=== PATIENT | female | born 1965 | race Caucasian/White ===

== ENCOUNTER 2022-09-30 17:25 | Emergency (ER) | payer OTHER ==
--- NOTE | 2022-09-30 17:28 | ERPHSYRPT ---
- History of Present Illness Time Seen by Provider: 09/30/22 17:28 Source: patient, family Exam Limitations: no limitations Physician History: This is a 57-year-old white female patient who has had a left hip surgery in the distant past and has had problems with her left lower extremity intermittently. But in the last month, she has had more significant swelling in her left lower extremity. The last few days its even worse. Patient is being worked up as an outpatient. She has not had a fever. She has not had a cough. She has no chest pain and she denies shortness of breath. Patient has a history of hypertension, gastroesophageal reflux disease and hyperlipidemia. Occurred: other (Intermittently over the last month) Quality: constant, aching Severity of Pain-Max: mild Severity of Pain-Current: mild Lower Extremities Pain: leg: left, thigh: left, foot: left, ankle: left Modifying Factors: Improves With: nothing Associated Symptoms: none Allergies/Adverse Reactions: gabapentin Allergy (Verified 09/30/22 17:55) latex Allergy (Verified 09/30/22 17:55) Home Medications: Amlodipine Besylate/Benazepril [Amlodipine-Benazepril 10-40 mg] 1 each PO DAILY 09/30/22 [History] Aspirin EC 81 mg [Ecotrin 81 mg] 81 mg PO DAILY 09/30/22 [History] Omeprazole Magnesium [Prilosec Otc] 20 mg PO DAILY 09/30/22 [History] Pravastatin Sodium 80 mg PO HS 09/30/22 [History] Topiramate 100 mg [Topamax 100 MG] 100 mg PO HS 09/30/22 [History] Travel Risk - International Travel Have you traveled outside of the country in past 3 weeks: No - Coronavirus Screening Are you exhibiting any of the following symptoms?: No Close contact with a COVID-19 positive Pt in past 14-21 Days: No - Review of Systems Constitutional: No Symptoms Eyes: No Symptoms Ears, Nose, & Throat: No Symptoms Respiratory: No Symptoms Cardiac: No Symptoms Abdominal/Gastrointestinal: No Symptoms Genitourinary Symptoms: No Symptoms Musculoskeletal: No Symptoms Skin: Other (Swelling left lower extremity), No Cellulitis Neurological: No Symptoms Psychological: No Symptoms Endocrine: No Symptoms Hematologic/Lymphatic: No Symptoms Immunological/Allergic: No Symptoms All Other Systems: Reviewed and Negative - Past Medical History Pertinent Past Medical History: Yes - Past Surgical History Past Surgical History: Yes - Nursing Vital Signs Nursing Vital Signs: Initial Vital Signs Temperature 96.4 F 09/30/22 17:59 Pulse Rate 75 09/30/22 17:59 Respiratory Rate 18 09/30/22 17:59 Blood Pressure 168/79 09/30/22 17:59 O2 Sat by Pulse Oximetry 99 09/30/22 17:59 Pain Scale Pain Intensity 3 - Physical Exam General Appearance: no apparent distress, alert, anxiety Eyes, Ears, Nose, Throat Exam: normal ENT inspection, moist mucous membranes Neck Exam: normal inspection, non-tender, supple, full range of motion Cardiovascular/Respiratory Exam: chest non-tender, no respiratory distress Gastrointestinal/Abdominal Exam: non-tender Back Exam: normal inspection, normal range of motion, No CVA tenderness, No vertebral tenderness Hips Exam: bilateral: non-tender, normal inspection, normal range of motion Legs Exam: right leg: non-tender, normal inspection, normal range of motion, no evidence of injury, left leg: soft tissue tenderness ( left lower extremity), swelling ( left lower extremity) Knees Exam: right knee: non-tender, normal inspection, normal range of motion, no evidence of injury, left knee: soft tissue tenderness, swelling Ankle Exam: right ankle: non-tender, normal inspection, normal range of motion, no evidence of injury, left ankle: soft tissue tenderness, swelling Foot Exam: right foot: non-tender, normal inspection, normal range of motion, no evidence of injury, left foot: soft tissue tenderness, swelling Neuro/Tendon Exam: normal sensation, normal motor functions, normal tendon functions, responds to pain, no evidence tendon injury Mental Status Exam: alert, oriented x 3, cooperative Skin Exam: normal color, warm, dry SpO2 Interpretation: normal O2 Delivery: Room Air - Course Nursing assessment & vital signs reviewed: Yes Ordered Tests: Active Orders 24 hr Category Date Time Status Ultrasound Unilateral Extremities [VENOUS UNILAT/ Exams 09/30/22 18:15 Taken LIMITED EXTREMIT] [US] Stat Medication Summary Discontinued Medications Generic Name Dose Route Start Last Admin Trade Name Freq PRN Reason Stop Dose Admin Acetaminophen 650 mg 09/30/22 18:57 09/30/22 19:07 Acetaminophen 325 Mg Tablet PO 09/30/22 18:58 650 mg STAT ONE Administration Acetaminophen Confirm 09/30/22 19:06 Acetaminophen 325 Mg Tablet Administered 09/30/22 19:07 Dose 650 mg .ROUTE .STK-MED ONE - Progress Progress: improved, re-examined Progress Note: 09/30/22 19:42 Venous ultrasound left lower extremity shows no evidence of DVT. This patient's medical issues 1 of low complexity. Level of complexity in the work-up performed is based on review of the patient's past medical history, medication list review, review of the patient's drug allergy list, history of present illness and physical findings on examination. The work-up in this patient includes venous ultrasound of left lower extremity. There is no evidence of deep venous thrombosis. Patient is to continue the work-up as an outpatient as it is scheduled for her. Counseled pt/family regarding: diagnosis, need for follow-up, rad results Medical Desision Making - Diagnostic Testing Diagnostic test were ordered, analyzed, and reviewed by me: Yes Radiological Interpretation: Reviewed by me, Teleradiologist Report - Risk of complications Low Risk: Low risk of morbidity from additional dx testing or treatment - Departure Departure Disposition: Home Clinical Impression: Left leg swelling Condition: Stable Critical Care Time: No Referrals: ANDRE RODRIGUEZ NP [Primary Care Provider] - Follow up/PCP as directed Additional Instructions: Elevate the leg above the level of your heart when you are not ambulating. Contact your primary care provider on 10/02/2022 for further evaluation and management.
[2022-09-30 18:11] VITALS: PULSE 75
[2022-09-30 18:15] VITALS: O2SAT 97
[2022-09-30] MEDS ORDERED: TYLENOL 325 MG PO ONE (18:57)
[2022-09-30] MEDS ORDERED: TYLENOL 325 MG ONE (19:06)
[2022-09-30 19:13] VITALS: BP 130/75
--- NOTE | 2022-09-30 22:26 | XRAY ---
Indication: Pain and swelling. Two-dimensional sonogram and color Doppler imaging of the major venous vessels of the left leg performed. Comparison: None No thrombus seen in the examined deep venous vessels of the left leg including greater saphenous vein. Veins demonstrate normal compressibility. Venous waveforms are normal with and without augmentation. At the level of ankle, there is mild subcutaneous venous varicosities up to 3-4 mm diameter. Impression: Left leg negative for DVT. Incidental ankle subcutaneous venous varicosities.
== END 2022-09-30 20:02 | disposition home or self-care (01) ==
LOC: ED 17:25
DX: M79.89 Other specified soft tissue disorders (principal); I10 Essential (primary) hypertension; E78.5 Hyperlipidemia, unspecified; Z79.899 Other long term (current) drug therapy
CPT/HCPCS: 93971; 99282; A9270-GY

== ENCOUNTER 2022-11-27 21:51 | Emergency (ER) | payer OTHER ==
[2022-11-27] MEDS ORDERED: DELTASONE 10 MG PO STA (22:23)
[2022-11-27 22:27] VITALS: BP 110/59; PULSE 84; RESP 16; TEMP 97.1; O2SAT 99
[2022-11-27] MEDS ORDERED: DELTASONE 20 MG ONE (22:35)
[2022-11-27] MEDS ORDERED: DELTASONE 20 MG PO ONE (22:37)
--- NOTE | 2022-11-27 22:37 | ERPHSYRPT ---
- History of Present Illness Time Seen by Provider: 11/27/22 22:34 Source: patient Exam Limitations: no limitations Patient Subjective Stated Complaint: pt states she has had a cough for the last 2 days. states she has been coughing up thick white sputum. Triage Nursing Assessment: pt alert and oriented, answers questions approp. pt ambulates into room with steady gait noted. respirations nonlabored with lung sounds cta. skin warm and dry. Physician History: Patient is a 57-year-old female presents to our ED for evaluation of a cough. Cough has been present for 2 days. Patient states cough prevented her from slee ping last night. Cough productive of thick clear sputum. No fever. No shortness of breath. No chest pain. No nausea vomiting or diaphoresis. Symptoms are mild to moderate in intensity. No specific worsening improving factors. Patient is otherwise healthy. She voices no other complaints or concerns at this time. Portions of this note were created with voice recognition technology. There may be grammatical, spelling, punctuation or sound alike errors Timing/Duration: day(s) (2 days) Severity: moderate Modifying Factors: Improves With: nothing Associated Symptoms: denies symptoms Allergies/Adverse Reactions: gabapentin Allergy (Verified 11/27/22 22:27) latex Allergy (Verified 11/27/22 22:27) Home Medications: Aspirin EC 81 mg [Ecotrin 81 mg] 81 mg PO DAILY 09/30/22 [History] Omeprazole Magnesium [Prilosec Otc] 20 mg PO DAILY 09/30/22 [History] Pravastatin Sodium 80 mg PO HS 09/30/22 [History] Amlodipine Besylate/Benazepril [Amlodipine-Benazepril 10-20 mg] 1 each PO DAILY 11/27/22 [History] Famotidine 20 mg [Pepcid 20 MG] 40 mg PO DAILY 11/27/22 [History] Topiramate [Trokendi Xr] 100 mg PO DAILY 11/27/22 [History] Zinc Gluconate [Zinc] 50 mg PO DAILY 11/27/22 [History] Hx Tetanus, Diphtheria Vaccination/Date Given: Yes Hx Influenza Vaccination/Date Given: No Hx Pneumococcal Vaccination/Date Given: Yes Travel Risk - International Travel Have you traveled outside of the country in past 3 weeks: No - Coronavirus Screening Are you exhibiting any of the following symptoms?: Yes Symptoms: Cough: New Onset Close contact with a COVID-19 positive Pt in past 14-21 Days: No - Vaccine Status Have you recieved a Covid-19 vaccination: Yes [employer]: Moderna - Vaccination Dates Date of 2cond Vaccination (if applicable): 2020 - Review of Systems Constitutional: No Symptoms, No Fever, No Chills Eyes: No Symptoms Ears, Nose, & Throat: No Symptoms Respiratory: No Symptoms, No Cough, No Dyspnea Cardiac: No Symptoms, No Chest Pain, No Edema, No Syncope Abdominal/Gastrointestinal: No Symptoms, No Abdominal Pain, No Nausea, No Vomiting, No Diarrhea Genitourinary Symptoms: No Symptoms, No Dysuria Musculoskeletal: No Symptoms, No Back Pain, No Neck Pain Skin: No Symptoms, No Rash Neurological: No Symptoms, No Dizziness, No Focal Weakness, No Sensory Changes Psychological: No Symptoms Endocrine: No Symptoms Hematologic/Lymphatic: No Symptoms Immunological/Allergic: No Symptoms All Other Systems: Reviewed and Negative - Past Medical History Pertinent Past Medical History: Yes Neurological History: Migraines ENT History: No Pertinent History Cardiac History: High Cholesterol, Hypertension Respiratory History: No Pertinent History Endocrine Medical History: No Pertinent History Musculoskeletal History: Arthritis GI Medical History: GERD, Hernia History: No Pertinent History Psycho-Social History: No Pertinent History Female Reproductive Disorders: No Pertinent History - Past Surgical History Past Surgical History: Yes Neuro Surgical History: No Pertinent History Cardiac: No Pertinent History Respiratory: No Pertinent History Gastrointestinal: No Pertinent History Genitourinary: No Pertinent History Musculoskeletal: Orthopedic Surgery Female Surgical History: Section, Lumpectomy Other Surgical History: left hip x 2; lumps removed of both breast; left rotar cuff - Social History Smoking Status: Current every day smoker How long have you smoked: 41yrs Exposure to second hand smoke: Yes Drug Use: none Patient Lives Alone: Yes - Nursing Vital Signs Nursing Vital Signs: Initial Vital Signs Temperature 97.1 F 11/27/22 22:12 Pulse Rate 84 11/27/22 22:12 Respiratory Rate 16 11/27/22 22:12 Blood Pressure 110/59 11/27/22 22:12 O2 Sat by Pulse Oximetry 99 11/27/22 22:12 Pain Scale Pain Intensity 0 - Physical Exam General Appearance: no apparent distress, alert Eye Exam: PERRL/EOMI, eyes nml inspection Ears, Nose, Throat Exam: normal ENT inspection, TMs normal, pharynx normal, moist mucous membranes Neck Exam: normal inspection, non-tender, supple, full range of motion Respiratory Exam: normal breath sounds, lungs clear, airway intact, other (Lungs are clear no wheezing no rhonchi no tachypnea no hypoxia no shortness of breath, no diminished breath sounds), No respiratory distress Cardiovascular Exam: regular rate/rhythm, normal heart sounds, normal peripheral pulses Gastrointestinal/Abdomen Exam: soft, normal bowel sounds, No tenderness, No mass Back Exam: normal inspection, normal range of motion, No CVA tenderness, No vertebral tenderness Extremity Exam: normal inspection, normal range of motion, pelvis stable Neurologic Exam: alert, oriented x 3, cooperative, normal mood/affect, nml cerebellar function, nml station & gait, sensation nml, No motor deficits Skin Exam: normal color, warm, dry, No rash Lymphatic Exam: No adenopathy SpO2 Interpretation: normal SpO2: 99 O2 Delivery: Room Air - Course Nursing assessment & vital signs reviewed: Yes Ordered Tests: Medication Summary Discontinued Medications Generic Name Dose Route Start Last Admin Trade Name Freq PRN Reason Stop Dose Admin Prednisone 60 mg 11/27/22 22:23 Prednisone 10 Mg Tablet PO 11/27/22 22:24 ONCE STA - Progress Progress: improved Progress Note: Patient is a 57-year-old female presents to our ED with a 2-day history of a cough productive of clear sputum. No other symptomology. No fever. No nausea vomiting or diaphoresis. No chest pain or shortness of breath. Physical exam is nonremarkable. Vitals within normal limits. No fever. No hypoxia. No tachypnea. No shortness of breath. Patient received a dose of prednisone in our ED. A prescription for prednisone and albuterol inhaler forwarded to patient's pharmacy. Patient likely has early bronchitis. Patient is a smoker. Patient agrees to follow-up with her primary care doctor within 48 hours for reevaluation. Portions of this note were created with voice recognition technology. There may be grammatical, spelling, punctuation or sound alike errors Complexity of problems addressed is moderate acute complicated Complex of data reviewed and analyzed is none. Diagnosis made based on history and physical examination. No specialized testing ordered Risk of complication and or risk morbidity/mortality patient management is moderate. A prescription for prednisone and albuterol inhaler forwarded to patient's pharmacy. Vital stable. Time spent to discharge patient is approximately 10 to 15 minutes. Plan of care established for shared decision making. No social determinants of health present impede follow-up. Patient voices no other complaints or concerns at this time. Patient agrees to follow-up with her primary care doctor within 48 hours. Portions of this note were created with voice recognition technology. There may be grammatical, spelling, punctuation or sound alike errors 11/27/22 22:38 Counseled pt/family regarding: diagnosis, need for follow-up - Departure Departure Disposition: Home Clinical Impression: Cough Condition: Stable Critical Care Time: No Referrals: ANDRE RODRIGUEZ STREN[employer] AND CONDITIONING COACH [Primary Care Provider] - Follow up/PCP as directed Additional Instructions: Discharge/Care Plan YURI SCHRADER was seen on 11/27/22 in the Emergency Room. The patient was counseled regarding Diagnosis,Lab results, Imaging studies, need for follow up and when to return to the Emergency Room. Prescriptions given: Discharge Note I have spoken with the patient and/or caregivers. I have explained the patient's condition, diagnosis and treatment plan based on the information available to me at this time. I have answered the patient's and/or caregiver's questions and addressed any concerns. The patient and/or caregivers have as good understanding of the patient's diagnosis, condition and treatment plan as can be expected at this point. The vital signs have been stable. The patient's condition is stable and appropriate for discharge from the emergency department. The patient will pursue further outpatient evaluation with the primary care physician or other designated or consulting physician as outlined in the discharge instructions. The patient and/or caregivers are agreeable to this plan of care and follow-up instructions have been explained in detail. The patient and/or caregivers have received these instruction. The patient/and or caregivers are aware that any significant change in condition or worsening of symptoms should prompt an immediate return to this or the closest emergency department or call 911. Prescriptions: Prednisone 10 mg [Deltasone 10 mg] 40 mg PO DAILY 3 Days #12 tablet Albuterol 8 gm Mdi Hfa [Ventolin Hfa MDI] 8 gm IH Q4H #1
== END 2022-11-27 22:59 | disposition home or self-care (01) ==
LOC: ED 21:51
DX: R05.1 Acute cough (principal); E78.5 Hyperlipidemia, unspecified; I10 Essential (primary) hypertension; Z79.52 Long term (current) use of systemic steroids; Z79.899 Other long term (current) drug therapy; Z72.0 Tobacco use
CPT/HCPCS: 99281; A9270-GY